=== PATIENT | male | born 1995 | race Caucasian/White ===

== ENCOUNTER 2022-03-11 11:34 | Outpatient (CLI) | payer BC, SELFPAY ==
[2022-03-11 12:57] LABS: Chloride* 109 mmol/L (96-114); Potassium* 4.8 mmol/L (3.6-5.1); Sodium* 144 mmol/L (135-149)
[2022-03-11 13:00] LABS: Blood Urea Nitrogen* 18 mg/dL (5-24); Carbon Dioxide* 25 mmol/L (20-32); Cholesterol* 194 mg/dL (90-199); Creatinine* 0.8 mg/dL (0.5-1.5); Estimated Glomerular Filt Rate 125 ml/min; Glucose* 80 mg/dL (60-115); Triglycerides* 112 mg/dL (40-149)
[2022-03-11 13:01] LABS: Calcium* 9.8 mg/dL (8.4-10.6); HDL Cholesterol* 44 mg/dL (>=40); LDL Cholesterol Calculated 128 mg/dL (<100)
== END 2022-03-11 11:35 | disposition home or self-care (01) ==
PROVIDERS: PCP Family Medicine; Visit Provider Family Medicine
DX: Z00.00 Encounter for general adult medical examination without abnormal findings (principal); Z86.79 Personal history of other diseases of the circulatory system; Z13.6 Encounter for screening for cardiovascular disorders; Z13.29 Encounter for screening for other suspected endocrine disorder
CPT/HCPCS: 80048; 80061; 84443